=== PATIENT | female | born 1945 | race Two or more races ===

== ENCOUNTER 2020-03-28 21:03 | Inpatient (IN) | payer MEDICAID, MEDICARE ==
[~2020-03-28] VITALS: Ht 170.2 cm; Wt 73.6 kg
[2020-03-28] MEDS ORDERED: METOPROLOL TARTRATE 5MG/5ML VIAL IV ONE ×2 (21:45)
[2020-03-28] MEDS ORDERED: METOPROLOL TARTRATE 25MG TABLET PO ONE (22:00)
[2020-03-28 23:18] LABS: BASOPHILS % 0.3 % (0.0-2.0); EOSINOPHILS % 0.2 % (0.0-5.0); HEMATOCRIT. 40.4 % (36.0-48.0); HEMOGLOBIN. 13.6 g/dL (12.0-16.0); LYMPHOCYTES % 20.1 % (20.0-50.0); MEAN CORPUSCULAR HEMOGLOBIN 32.2 pg (28.0-32.0); MEAN CORPUSCULAR VOLUME 95.8 fL (81.0-99.0); MEAN PLATELET VOLUME 8.8 fl (7.4-10.4); MONOCYTES % 4.9 % (2.0-8.0); NEUTROPHILS % 74.5 % (40.0-76.0); PLATELET 303 x1000/uL (130-400); RED BLOOD CELL COUNT 4.21 mill/uL (4.2-5.4); RED CELL DISTRIBUTION WIDTH 13.9 % (11.6-14.6)
[2020-03-28 23:22] LABS: CHLORIDE 108 mEq/L (98-107)
[2020-03-28 23:24] LABS: PROTHROMBIN TIME 10.1 sec (9.6-11.0)
[2020-03-28 23:28] LABS: ETHANOL BLOOD < 10 mg/dL
[2020-03-29] MEDS ORDERED: FUROSEMIDE 20MG/2ML VIAL IVP ONE (01:15)
[2020-03-29 01:57] LABS: CLARITY URINE CLEAR (CLEAR); COLOR URINE YELLOW (YELLOW); KETONES URINE NEGATIVE (NEGATIVE); LEUKOCYTE ESTERASE URINE NEGATIVE (NEGATIVE); NITRITE URINE NEGATIVE (NEGATIVE); OCCULT BLOOD URINE 1+ (NEGATIVE); PROTEIN URINE 3+ (NEGATIVE); UROBILINOGEN URINE 0.2 E.U./dL (0.2-1.0)
[2020-03-29 02:12] LABS: *AMPHETAMINES SCREEN URINE NEGATIVE (NEGATIVE); *BARBITURATES SCREEN URINE NEGATIVE (NEGATIVE); *BENZODIAZEPINES SCREEN URINE NEGATIVE (NEGATIVE); *COCAINE SCREEN URINE NEGATIVE (NEGATIVE); CANNABINOID URINE SCREEN NEGATIVE (NEGATIVE); METHADONE URINE SCREEN NEGATIVE (NEGATIVE); OPIATES URINE SCREEN NEGATIVE (NEGATIVE); PHENCYCLIDINE URINE SCREEN NEGATIVE (NEGATIVE)
[2020-03-29] MEDS ORDERED: HYDROCODONE/ACETAMINOPHEN 5/325MG TABLET PO PRN (02:15)
[2020-03-29] MEDS ORDERED: ONDANSETRON HCL 4MG/2ML INJ IV PRN (02:15)
[2020-03-29] MEDS ORDERED: DOCUSATE SODIUM 100MG CAPSULE PO PRN (02:15)
[2020-03-29] MEDS ORDERED: GUAIFENESIN 200MG/10ML SUGAR FREE UDC PO PRN (02:15)
[2020-03-29] MEDS ORDERED: ACETAMINOPHEN 325MG TABLET PO PRN (02:15)
[2020-03-29] MEDS ORDERED: MAGNESIUM/ALUMINUM HYDROXIDE/SIMETHICONE 30ML UDC PO PRN (02:15)
[2020-03-29] MEDS ORDERED: CLONIDINE 0.1MG TABLET PO PRN (02:15)
[2020-03-29 04:00] VITALS: BP 151/67
[2020-03-29] MEDS ORDERED: LOSA25TA26 PO (05:44)
[2020-03-29] MEDS ORDERED: AMLO10TA80 PO (05:44)
[2020-03-29 06:47] VITALS: BP 151/67
[2020-03-29 08:00] VITALS: BP 150/63
[2020-03-29] MEDS: ASPIRIN 81MG EC TABLET PO SCH (08:48)
[2020-03-29] MEDS: METOPROLOL TARTRATE 25MG TABLET PO SCH ×2 (08:49→20:49)
[2020-03-29] MEDS: ENOXAPARIN 40MG/0.4ML SYR SUBCUT SCH (08:49)
[2020-03-29] MEDS: AMLODIPINE 10MG TABLET PO SCH (08:49)
[2020-03-29 12:00] VITALS: BP 146/61
[2020-03-29 12:15] LABS: HDL CHOLESTEROL 63 mg/dL (40-59); LDL CHOLESTEROL 124 mg/dL (5-100)
[2020-03-29 16:00] VITALS: BP 143/56
[2020-03-29 20:00] VITALS: BP 133/51
[2020-03-29] MEDS ORDERED: ATORVASTATIN CALCIUM 20MG TABLET PO SCH (21:00)
[2020-03-30] VITALS (7 sets, daily range): BP systolic 121–139; BP diastolic 46–72
[2020-03-30 07:37] LABS: BASOPHILS % 0.6 % (0.0-2.0); EOSINOPHILS % 1.5 % (0.0-5.0); HEMATOCRIT. 40.1 % (36.0-48.0); HEMOGLOBIN. 13.4 g/dL (12.0-16.0); MEAN CORPUSCULAR HEMOGLOBIN 31.8 pg (28.0-32.0); MEAN CORPUSCULAR VOLUME 95.1 fL (81.0-99.0); MEAN PLATELET VOLUME 8.9 fl (7.4-10.4); MONOCYTES % 7.1 % (2.0-8.0); NEUTROPHILS % 46.8 % (40.0-76.0); PLATELET 255 x1000/uL (130-400); RED BLOOD CELL COUNT 4.22 mill/uL (4.2-5.4)
[2020-03-30 08:06] LABS: CHLORIDE 108 mEq/L (98-107); HDL CHOLESTEROL 50 mg/dL (40-59); LDL CHOLESTEROL 103 mg/dL (5-100); T4 FREE 0.93 ng/dL (0.76-1.46)
[2020-03-30] MEDS: METOPROLOL TARTRATE 25MG TABLET PO SCH ×2 (09:41→21:20)
[2020-03-30] MEDS: AMLODIPINE 10MG TABLET PO SCH (09:41)
[2020-03-30] MEDS: ENOXAPARIN 40MG/0.4ML SYR SUBCUT SCH (09:41)
[2020-03-30] MEDS: ASPIRIN 81MG EC TABLET PO SCH (09:41)
[2020-03-30] MEDS: APIXABAN 5 MG TABLET PO SCH (17:00)
[2020-03-30] MEDS ORDERED: ATORVASTATIN CALCIUM 40MG TABLET PO SCH (21:00)
[2020-03-31] VITALS: BP 136/68
[2020-03-31 04:00] VITALS: BP 131/64
[2020-03-31 06:43] LABS: CHLORIDE 107 mEq/L (98-107)
[2020-03-31 07:07] LABS: BASOPHILS % 0.7 % (0.0-2.0); EOSINOPHILS % 2.5 % (0.0-5.0); HEMATOCRIT. 39.5 % (36.0-48.0); HEMOGLOBIN. 13.2 g/dL (12.0-16.0); LYMPHOCYTES % 48.6 % (20.0-50.0); MEAN CORPUSCULAR HEMOGLOBIN 31.7 pg (28.0-32.0); MEAN CORPUSCULAR VOLUME 94.9 fL (81.0-99.0); MEAN PLATELET VOLUME 8.6 fl (7.4-10.4); MONOCYTES % 8.3 % (2.0-8.0); NEUTROPHILS % 39.9 % (40.0-76.0); PLATELET 273 x1000/uL (130-400); RED BLOOD CELL COUNT 4.16 mill/uL (4.2-5.4)
[2020-03-31] MEDS ORDERED: LEVOTHYROXINE SODIUM 25MCG TABLET PO SCH (07:10)
[2020-03-31 08:00] VITALS: BP 153/63
[2020-03-31] MEDS ORDERED: APIX5TAB MT (09:24)
[2020-03-31] MEDS ORDERED: LIP40 MT (09:24)
[2020-03-31] MEDS ORDERED: LEVO25TA2 MT (09:24)
[2020-03-31] MEDS ORDERED: SPIRONOLACTONE 25MG TABLET PO SCH (09:45)
[2020-03-31] MEDS: ASPIRIN 81MG EC TABLET PO SCH (10:54)
[2020-03-31] MEDS: AMLODIPINE 10MG TABLET PO SCH (10:54)
[2020-03-31] MEDS: APIXABAN 5 MG TABLET PO SCH (10:54)
[2020-03-31 11:49] VITALS: BP 149/65
== END 2020-03-31 14:25 | disposition home or self-care (01) | DRG 64 ==
LOC: ER 21:03 → 8WST 03-29 01:03 → ENRESERV 03-29 04:39
PROVIDERS: ADMIT Hospitalist; ATTEND Hospitalist
DX: I63.9 Cerebral infarction, unspecified (principal); I50.33 Acute on chronic diastolic (congestive) heart failure; D68.69 Other thrombophilia; E03.9 Hypothyroidism, unspecified; H50.00 Unspecified esotropia; I11.0 Hypertensive heart disease with heart failure; I48.0 Paroxysmal atrial fibrillation; Z79.899 Other long term (current) drug therapy
CPT/HCPCS: 36415; 70551; 71045; 80053; 80061; 80305; 80320; 81003; 83605; 83735; 83880; 84439; 84443; 84484; 85025; 86850; 86900; 93005; 93306; 93880; 93970; 97162; 97166; 99291; J1650; J1940; J3490; G0480